=== PATIENT | male | born 1955 | race Caucasian/White ===

== ENCOUNTER 2019-08-22 09:10 | Outpatient (CLI) | payer MEDICARE, OTHER, SELFPAY | END 2019-08-22 09:30 | PROVIDERS: PCP Nurse Practitioner; Visit Provider Nurse Practitioner | DX: R97.20 Elevated prostate specific antigen [PSA] (principal); Z12.5 Encounter for screening for malignant neoplasm of prostate | CPT/HCPCS: 36415; 84153 ==

== ENCOUNTER 2020-02-20 13:12 | Outpatient (REF) | payer MEDICARE, OTHER, SELFPAY ==
[2020-02-20 13:42] LABS: CREATININE 1.11 mg/dL (0.70-1.30)
== END 2020-02-20 13:32 ==
LOC: LBN 13:12
PROVIDERS: PCP Nurse Practitioner; Visit Provider Nurse Practitioner
DX: I10 Essential (primary) hypertension (principal); R73.03 Prediabetes
CPT/HCPCS: 82565; 84132

== ENCOUNTER 2020-04-03 11:24 | Outpatient (REF) | payer MEDICARE, OTHER, SELFPAY ==
[2020-04-03 13:50] LABS: CREATININE 1.18 mg/dL (0.70-1.30); Calculated LDL 122 mg/dL (<100); Cholesterol 195 mg/dL (<200); HDL Cholesterol 44 mg/dL (40-60); Potassium 3.6 mmol/L (3.5-5.1); Triglyceride 146 mg/dL (<150)
[2020-04-03 14:10] LABS: Hemoglobin A1C 5.6 % (<5.7)
[2020-04-06 10:35] LABS: PSA, Screening 3.5 ng/mL (0.0-4.5)
== END 2020-04-03 11:44 ==
LOC: LBN 11:24
PROVIDERS: PCP Nurse Practitioner; Visit Provider Nurse Practitioner
DX: I10 Essential (primary) hypertension (principal); R73.03 Prediabetes; R97.20 Elevated prostate specific antigen [PSA]; E78.2 Mixed hyperlipidemia; Z12.5 Encounter for screening for malignant neoplasm of prostate
CPT/HCPCS: 80061; 84153; 82565; 83036; 84132

== ENCOUNTER 2020-08-13 04:42 | Outpatient (CLI) | payer MEDICARE, OTHER, SELFPAY ==
[2020-08-13 17:26] LABS: PSA, Screening 3.9 ng/mL (0.0-4.5)
== END 2020-08-13 05:02 ==
PROVIDERS: PCP Nurse Practitioner; Visit Provider Nurse Practitioner
DX: R97.20 Elevated prostate specific antigen [PSA] (principal); Z12.5 Encounter for screening for malignant neoplasm of prostate
CPT/HCPCS: 36415; 84153

== ENCOUNTER 2021-02-12 02:15 | Outpatient (CLI) | payer MEDICARE, SELFPAY ==
[2021-02-12 13:30] LABS: CREATININE 1.2 mg/dL (0.70-1.30); Calculated LDL 105 mg/dL (<100); Cholesterol 165 mg/dL (<200); HDL Cholesterol 40 mg/dL (40-60); Potassium 3.7 mmol/L (3.5-5.1); Triglyceride 100 mg/dL (<150)
[2021-02-12 13:31] LABS: Hemoglobin A1C 5.6 % (<5.7)
== END 2021-02-12 02:16 | disposition home or self-care (01) ==
LOC: LOS 02:16
PROVIDERS: PCP Nurse Practitioner; Visit Provider Nurse Practitioner
DX: I10 Essential (primary) hypertension (principal); R73.03 Prediabetes
CPT/HCPCS: 36415; 80061; 82565; 83036; 84132

== ENCOUNTER 2021-08-20 04:32 | Outpatient (CLI) | payer MEDICARE, OTHER, SELFPAY ==
[2021-08-20 18:55] LABS: PSA, Screening 3.5 ng/mL (0.0-4.5)
== END 2021-08-20 04:33 | disposition home or self-care (01) ==
LOC: LBO 04:32
PROVIDERS: PCP Nurse Practitioner; Visit Provider Nurse Practitioner
DX: R97.20 Elevated prostate specific antigen [PSA] (principal); Z12.5 Encounter for screening for malignant neoplasm of prostate
CPT/HCPCS: 36415; 84153

== ENCOUNTER 2022-02-02 02:39 | Outpatient (CLI) | payer MEDICARE, OTHER, SELFPAY ==
[2022-02-02 12:47] LABS: ALT 36 U/L (16-63); AST 26 U/L (15-37); Albumin 4.1 g/dL (3.4-5.0); Alkaline Phosphatase 46 U/L (46-116); Anion Gap 11.8 mmol/L (3-11); BUN 25 mg/dL (7-18); Bilirubin, Total 0.6 mg/dL (0.2-1.0); CO2 28.2 mmol/L (21.0-32.0); CREATININE 1.3 mg/dL (0.70-1.30); Calcium 8.6 mg/dL (8.5-10.1); Calculated LDL 146 mg/dL (<100); Chloride 102 mmol/L (98-107); Cholesterol 214 mg/dL (<200); Estimated GFR 55.06 (mL/min/1.73m2); Glucose 115 mg/dL (74-106); HDL Cholesterol 45 mg/dL (40-60); Potassium 3.7 mmol/L (3.5-5.1); Sodium 142 mmol/L (136-145); Total Protein 7.4 g/dL (6.4-8.2); Triglyceride 115 mg/dL (<150)
== END 2022-02-02 02:40 | disposition home or self-care (01) ==
PROVIDERS: PCP Nurse Practitioner; Visit Provider Nurse Practitioner
DX: E78.2 Mixed hyperlipidemia (principal)
CPT/HCPCS: 36415; 80053; 80061

== ENCOUNTER 2022-09-07 01:36 | Outpatient (CLI) | payer MEDICARE, OTHER, SELFPAY ==
[2022-09-07 12:41] LABS: ALT 38 U/L (16-63); AST 19 U/L (15-37); Albumin 4.2 g/dL (3.4-5.0); Alkaline Phosphatase 65 U/L (46-116); Anion Gap 9.2 mmol/L (3-11); BUN 16 mg/dL (7-18); Bilirubin, Total 0.6 mg/dL (0.2-1.0); CO2 30.8 mmol/L (21.0-32.0); CREATININE 1.3 mg/dL (0.70-1.30); Calcium 9.5 mg/dL (8.5-10.1); Calculated LDL 117 mg/dL (<100); Chloride 101 mmol/L (98-107); Cholesterol 192 mg/dL (<200); Estimated GFR 59.84 (mL/min/1.73m2); Glucose 130 mg/dL (74-106); HDL Cholesterol 45 mg/dL (40-60); Potassium 3.8 mmol/L (3.5-5.1); Sodium 141 mmol/L (136-145); Total Protein 7.6 g/dL (6.4-8.2); Triglyceride 151 mg/dL (<150)
[2022-09-07 12:53] LABS: Hemoglobin A1C 5.4 % (<5.7)
[2022-09-07 22:30] LABS: PSA, Screening 3.3 ng/mL (<=4.5)
== END 2022-09-07 01:37 | disposition home or self-care (01) ==
LOC: LOS 01:36
PROVIDERS: PCP Nurse Practitioner Family; Visit Provider Nurse Practitioner Family
DX: E78.2 Mixed hyperlipidemia (principal); I10 Essential (primary) hypertension; R73.09 Other abnormal glucose; R97.20 Elevated prostate specific antigen [PSA]; Z12.5 Encounter for screening for malignant neoplasm of prostate
CPT/HCPCS: 36415; 80053; 80061; 84153; 83036

== ENCOUNTER 2023-06-12 14:44 | Outpatient (CLI) | payer MEDICARE, OTHER, SELFPAY ==
--- NOTE | 2023-06-12 14:30 | RT.EKG_ITS ---
APPROVED REPORT Exam: Resting ECG Reason for Exam: Pre-Op Patient Location: O HR:84 bpm ECG Measurements Heart Rate 84 AXIS WV 195 P 61 QRSd 99 QRS 35 QT 380 T 55 QTc 450 Conclusion Sinus rhythm...normal P axis, V-rate 50- 99 Normal Electrocardiogram
== END 2023-06-12 14:45 | disposition home or self-care (01) ==
LOC: DI.CM 14:45
PROVIDERS: PCP Nurse Practitioner Family; Visit Provider Nurse Practitioner Family
DX: Z01.818 Encounter for other preprocedural examination (principal)
CPT/HCPCS: 93010

== ENCOUNTER 2023-06-21 09:49 | Outpatient (CLI) | payer MEDICARE, SELFPAY ==
[2023-06-21 09:59] LABS: HCT 49.7 % (40.0-50.0); HGB 16.6 g/dL (13.5-17.5); MCH 31.7 pg (27.0-33.0); MCHC 33.4 % (32.0-36.0); MCV 95 fL (80-95); Platelet Count 246 10^3/uL (130-400); RBC 5.24 10^6/uL (4.36-5.78); RDW 12.5 % (11.8-14.1); RDW-SD 43.7 fL; WBC 6.51 10^3/uL (4.4-10.8)
[2023-06-21 10:00] LABS: Anion Gap 7.4 mmol/L (3-11); BUN 22 mg/dL (7-18); CO2 31.6 mmol/L (21.0-32.0); CREATININE 1.4 mg/dL (0.70-1.30); Chloride 103 mmol/L (98-107); Estimated GFR 54.75 (mL/min/1.73m2); Glucose 132 mg/dL (74-106); Potassium 3.8 mmol/L (3.5-5.1); Sodium 142 mmol/L (136-145)
[2023-06-23 12:49] LABS: Lab Add On Test DONE
[2023-06-23 13:05] LABS: Hemoglobin A1C 5.5 % (<5.7)
== END 2023-06-21 09:50 | disposition home or self-care (01) ==
LOC: LBO 09:53
PROVIDERS: PCP Nurse Practitioner Family; Visit Provider Nurse Practitioner Family
DX: Z01.818 Encounter for other preprocedural examination (principal); R73.09 Other abnormal glucose
CPT/HCPCS: 36415; 80048; 85027; 83036

== ENCOUNTER 2024-10-23 03:14 | Outpatient (CLI) | payer MEDICARE, SELFPAY ==
[2024-10-23 12:57] LABS: Anion Gap 12.2 mmol/L (3-11); BUN 16 mg/dL (7-18); CO2 26.8 mmol/L (21.0-32.0); CREATININE 1.2 mg/dL (0.70-1.30); Calculated LDL 102 mg/dL (<100); Chloride 104 mmol/L (98-107); Cholesterol 171 mg/dL (<200); Estimated GFR 65.06 (mL/min/1.73m2); Glucose 126 mg/dL (74-106); HDL Cholesterol 40 mg/dL (>or=40); Potassium 3.6 mmol/L (3.5-5.1); Sodium 143 mmol/L (136-145); TSH (W/Ref FT4) 2.04 uIU/mL (0.36-3.74); Triglyceride 147 mg/dL (<150)
[2024-10-23 18:54] LABS: PSA, Diagnostic 6.5 ng/mL (<=6.5)
== END 2024-10-23 03:15 | disposition home or self-care (01) ==
LOC: LOS 03:14
PROVIDERS: PCP Nurse Practitioner Family; Visit Provider Nurse Practitioner Family
DX: R97.20 Elevated prostate specific antigen [PSA] (principal); Z00.00 Encounter for general adult medical examination without abnormal findings; I10 Essential (primary) hypertension; N52.9 Male erectile dysfunction, unspecified; E78.2 Mixed hyperlipidemia
CPT/HCPCS: 36415; 80048; 80061; 84153; 84443

== ENCOUNTER 2025-01-01 01:47 | Outpatient (CLI) | payer MEDICARE, SELFPAY ==
--- NOTE | 2025-01-01 07:30 | DI.US_ITS ---
Exam(s) US SOFT TISSUE HEAD OR NECK EXAM: US SOFT TISSUE HEAD OR NECK CLINICAL HISTORY: soft mass base of neck, upper back area,R22.9. TECHNIQUE: Ultrasound was performed using standard protocol. COMPARISON: No exams were available for comparison FINDINGS: Sonographic assessment utilizing grayscale and color Doppler imaging was performed and targeted to th e area of clinical concern. There is a 5.2 x 2.4 x 4.7 cm well-circumscribed subcutaneous mass in the upper central back correspo nding to the palpable abnormality. It is isoechoic to the surrounding fat and is most suggestive of a lipoma. IMPRESSION: 5.2 x 2.4 x 4.7 cm lipoma. DATA REPOSITORY:
== END 2025-01-01 02:07 ==
LOC: DI 01:47
PROVIDERS: PCP Nurse Practitioner Family; Visit Provider Nurse Practitioner Family
DX: D17.0 Benign lipomatous neoplasm of skin and subcutaneous tissue of head, face and neck (principal)
CPT/HCPCS: 76536

== ENCOUNTER → 2025-01-29 10:17 | Outpatient (BNVA) | payer MEDICARE, SELFPAY | PROVIDERS: PCP Nurse Practitioner Family; Referring Provider Nurse Practitioner Family; Visit Provider Surgery | DX: D17.1 Benign lipomatous neoplasm of skin and subcutaneous tissue of trunk (principal); L91.8 Other hypertrophic disorders of the skin | CPT/HCPCS: 99203 ==

== ENCOUNTER → 2025-02-19 12:54 | Outpatient (BNVA) | payer MEDICARE, SELFPAY | PROVIDERS: PCP Nurse Practitioner Family; Referring Provider Nurse Practitioner Family; Visit Provider Surgery | DX: D17.0 Benign lipomatous neoplasm of skin and subcutaneous tissue of head, face and neck (principal); L91.8 Other hypertrophic disorders of the skin | CPT/HCPCS: 11406; 11200 ==